=== PATIENT | female | born 1995 | race African-American/Black ===

== ENCOUNTER 2025-08-24 01:11 | Emergency (ER) | payer MEDICAID ==
[~2025-08-24] VITALS: Ht 170.2 cm; Wt 124.2 kg
[2025-08-24 01:44] VITALS: O2SAT 100
[2025-08-24] MEDS: ACETAMINOPHEN 325MG TABLET PO ONE (04:50)
[2025-08-24] MEDS ORDERED: IBUP-1455 MT (05:37)
[2025-08-24] MEDS: KETOROLAC 15MG/ML VIAL IM ONE (06:08)
[2025-08-24 06:15] VITALS: BP 122/86; PULSE 77; RESP 20; TEMP 36.8; O2SAT 100
== END 2025-08-24 06:55 | disposition home or self-care (01) ==
LOC: ER 01:11
DX: S02.2XXA Fracture of nasal bones, initial encounter for closed fracture (principal); G44.309 Post-traumatic headache, unspecified, not intractable; F12.90 Cannabis use, unspecified, uncomplicated; Y04.0XXA Assault by unarmed brawl or fight, initial encounter; Y93.89 Activity, other specified; Y92.89 Other specified places as the place of occurrence of the external cause; Y99.8 Other external cause status
CPT/HCPCS: 81025; 70450; 70486; 96372; 99285; J1885; Z7610